=== PATIENT | female | born 1965 ===

== ENCOUNTER 2020-09-30 15:06 | Emergency (ER) | payer OTHER ==
[2020-09-30 15:22] VITALS: BP 123/78
[2020-09-30 15:58] LABS: Alanine Aminotransferase 25 units/L (7-56); Albumin 4.6 g/dL (3.9-5); Blood Urea Nitrogen 12 mg/dL (7-17); Calcium 10.7 mg/dL (8.4-10.2); Hemolysis Index 10
[2020-09-30 16:00] LABS: BUN/Creatinine Ratio 17
[2020-09-30 16:15] LABS: Eosinophils # (Auto) 0.2 K/mm3 (0.0-0.4); Eosinophils % (Auto) 3.2 % (0.0-4.3); Hemoglobin 13.3 gm/dl (10.1-14.3); Lymphocytes % (Auto) 31.7 % (13.4-35.0); Mean Corpuscular HGB Conc 33 % (30-34); Mean Corpuscular Volume 88 fl (79-97); Monocytes # (Auto) 0.4 K/mm3 (0.0-0.8); Monocytes % (Auto) 5.7 % (0.0-7.3); Platelet Count 217 K/mm3 (140-440); Red Blood Count 4.53 M/mm3 (3.65-5.03); Red Cell Distribution Width 14.2 % (13.2-15.2)
--- NOTE | 2020-09-30 16:34 | Emergency Department Report ---
ED General Adult HPI - General Chief complaint: Neuro Symptoms/Deficit Stated complaint: LT SIDE NUMBNESS Time Seen by Provider: 09/30/20 16:06 Source: patient Mode of arrival: Ambulatory Limitations: No Limitations - History of Present Illness Initial comments: Patient is a 54-year-old female presents emergency room with complaints of an episode of paresthesias that lasted for approximately 2 hours. She states it was in her bilateral upper extremities, bilateral lower extremities, on her chest and her face. States her symptoms lasted for approximately 2 hours and then completely resolved. She denies any headache, vision changes, unilateral weakne ss, speech disturbance, gait disturbance, chest pain, shortness of breath. Past medical history of Caron's and is not currently on medication. She states that she has an appointment with her primary care doctor next week for routine physical and to have her thyroid panel performed. Allergy to acyclovir and erythromycin. - Related Data Allergies Allergy/AdvReac Type Severity Reaction Status Date / Time acyclovir Allergy Swelling Verified 09/30/20 15:15 erythromycin base Allergy Vomiting Verified 09/30/20 15:15 ED Review of Systems ROS: Stated complaint: LT SIDE NUMBNESS Other details as noted in HPI Comment: All other systems reviewed and negative ED Physical Exam - General Limitations: No Limitations General appearance: alert, in no apparent distress - Head Head exam: Present: atraumatic, normocephalic - Eye Eye exam: Present: normal appearance, PERRL, EOMI - ENT ENT exam: Present: mucous membranes moist - Respiratory Respiratory exam: Present: normal lung sounds bilaterally. Absent: respiratory distress, wheezes, rales, rhonchi, stridor, chest wall tenderness, accessory muscle use, decreased breath sounds, prolonged expiratory - Cardiovascular Cardiovascular Exam: Present: regular rate, normal rhythm, normal heart sounds. Absent: systolic murmur, diastolic murmur, rubs, gallop - Neurological Exam Neurological exam: Present: alert, oriented X3, CN II-XII intact, normal gait, other (normal finger to nose, normal heel to gaytan, 5/5 muscle strength in the BUE/BLE, sensation intact throughout, no focal neuro deficit). Absent: motor sensory deficit - Psychiatric Psychiatric exam: Present: normal affect, normal mood - Skin Skin exam: Present: warm, dry, intact ED Course Vital Signs 09/30/20 15:21 Temperature 97.7 F Pulse Rate 88 Respiratory 18 Rate Blood Pressure 123/78 [Right] O2 Sat by Pulse 99 Oximetry ED Medical Decision Making - Lab Data Result diagrams: 09/30/20 15:26 09/30/20 15:26 - Medical Decision Making Patient is a 54-year-old female presents emergency room with complaints of an episode of paresthesias that lasted for approximately 2 hours. She states it was in her bilateral upper extremities, bilateral lower extremities, on her chest and her face. States her symptoms lasted for approximately 2 hours and then completely resolved. She denies any headache, vision changes, unilateral weakness, speech disturbance, gait disturbance, chest pain, shortness of breath. Past medical history of Caron's and is not currently on medication. She states that she has an appointment with her primary care doctor next week for routine physical and to have her thyroid panel performed. Allergy to acyclovir and erythromycin. Vitals are normal. Patient has no abnormality on physical examination as documented in chart. She is currently asymptomatic. She has no neuro deficits. Labs are stable. discussed with patient to have outpatient thyroid panel with her primary care doctor. Advised patient Please follow-up with your primary care doctor. Return to emergency room for any new or worsening symptoms. - Differential Diagnosis electrolyte disturbance, arthritis, anxiety, anemia, thyroid dz, dehydratio Critical care attestation.: If time is entered above; I have spent that time in minutes in the direct care of this critically ill patient, excluding procedure time. ED Disposition Clinical Impression: Paresthesias Disposition: DC-01 TO HOME OR SELFCARE Is pt being admited?: No Does the pt Need Aspirin: No Condition: Stable Instructions: Paresthesia Additional Instructions: Please follow-up with your primary care doctor. Return to emergency room for any new or worsening symptoms. Referrals: PRIMARY CARE, [Primary Care Provider] - 2-3 Days Time of Disposition: 16:35 Print Language: THAI
== END 2020-09-30 16:51 | disposition home or self-care (01) ==
LOC: ED 15:06
DX: R20.2 Paresthesia of skin (principal); Z88.8 Allergy status to other drugs, medicaments and biological substances; Z79.899 Other long term (current) drug therapy
CPT/HCPCS: 36415; 80053; 82550; 83735; 85025; 99283